=== PATIENT | male | born 1975 | race Caucasian/White ===

== ENCOUNTER → 2016-10-27 | Outpatient (REF) | payer BC ==
[2016-10-27 11:06] LABS: ALBUMIN 4.4 g/dL (3.4-5.0); CALCULATED IONIZED CALCIUM 4.2 mg/dL (3.8-4.6); TOTAL PROTEIN 7.5 g/dL (6.4-8.5)
== END ==
LOC: LAB 10:03
PROVIDERS: ATTEND Family Medicine
DX: Z13.1 Encounter for screening for diabetes mellitus (principal); E78.00 Pure hypercholesterolemia, unspecified
CPT/HCPCS: 80053; 80061